=== PATIENT | male | born 1950 | race African-American/Black ===

== ENCOUNTER 2018-01-03 07:05 | Inpatient (IN) | payer OTHER ==
[~2018-01-03] VITALS: Ht 182.9 cm; Wt 103.0 kg
[~2018-01-03 07:05] MED LIST: AMLO10TA PO; BENA40TA PO; CLIN300C2 PO; COL250 PO; FLOR250 PO; FLUO-387 PO; GABA300C PO; LEVO500T6 PO; METH500T14 PO; PANT40EC PO; PRAV40TA1 PO; [UNRECOGNIZED DRUG - CODE] PO
[2018-01-03 07:15] VITALS: BP 125/101
[2018-01-03] MEDS ORDERED: NACL 0.9% 1,000 ML IV ONE (07:20)
--- NOTE | 2018-01-03 07:20 | NUR ---
PATIENT PRESENTS TO ED WITH BIB [facility] WITH C/O OD ON NORCO, GIVEN NARCAN ON THE FIELD, RESPOND APPROPRIATELY, HX; DM, HTN, STROKE, HEARING IMPAIRED RX; NORVASC, LOTENSIN -- DENIES N/V/D; SKIN IS PINK/WARM/DRY; AAOX4 WITH EVEN AND STEADY GAIT; LUNGS CLEAR BL; HR EVEN AND REGULAR; PT DENIES ANY FEVER, CP, SOB, OR COUGH AT THIS TIME; PATIENT STATES PAIN OF 0/10 AT THIS TIME; VSS; PATIENT POSITIONED FOR COMFORT; HOB ELEVATED; BEDRAILS UP X2; BED DOWN. ER MD MADE AWARE OF PT STATUS.
[2018-01-03] MEDS ORDERED: IBUPROFEN 800 MG TAB PO ONE (07:50)
[2018-01-03] MEDS ORDERED: IBUPROFEN 400 MG TAB ONE (07:51)
[2018-01-03 08:05] LABS: BASOPHILS # (AUTO) 0.1 K/uL (0.00-0.22); BASOPHILS % (AUTO) 0.8 % (0.0-2.0); EOSINOPHILS # (AUTO) 0.1 K/uL (0-0.4); EOSINOPHILS % (AUTO) 0.4 % (0.0-4.0); HEMOGLOBIN 12.3 g/dL (12.0-18.0); LYMPHOCYTES # (AUTO) 0.5 K/uL (2.0-11.5); LYMPHOCYTES % (AUTO) 3.3 % (20.5-51.1); MEAN CORPUSCULAR HEMOGLOBIN 32 pg (27-31); MEAN CORPUSCULAR HGB CONC 33 g/dL (33-37); MEAN CORPUSCULAR VOLUME 96 fL (80-94); MONOCYTES # (AUTO) 0.1 K/uL (0.8-1.0); MONOCYTES % (AUTO) 0.8 % (1.7-9.3); NEUTROPHILS # (AUTO) 15.2 K/uL (1.8-7.7); NEUTROPHILS % (AUTO) 94.7 % (42.2-75.2); PLATELET COUNT (AUTO) 164 K/uL (140-450); RED BLOOD CELL COUNT(AUTO) 3.88 MIL/uL (4.20-6.10); RED CELL DISTRIBUTION WIDTH 13.5 % (11.6-13.7)
[2018-01-03 08:13] LABS: ANION GAP 14.9 (8-16); CARBON DIOXIDE 23.9 mmol/L (21-32); CREATININE 1.3 mg/dL (0.7-1.3); POTASSIUM 3.8 mmol/L (3.5-5.1)
[2018-01-03 08:15] LABS: SALICYLATE < 2.8 mg/dL (2.8-20.0)
[2018-01-03 08:16] LABS: ACETAMINOPHEN < 0.5 ug/ml (10-30)
[2018-01-03 08:20] LABS: ALBUMIN 3.6 g/dL (3.4-5.0); TOTAL BILIRUBIN 0.7 mg/dL (0.0-1.0)
[2018-01-03 08:40] LABS: BILIRUBIN,URINE NEGATIVE (NEGATIVE); BLOOD, URINE NEGATIVE (NEGATIVE); COLOR,URINE YELLOW (YELLOW); LEUKOCYTE ESTERASE ,URINE NEGATIVE (NEGATIVE); NITRITE, URINE NEGATIVE (NEGATIVE); PH,URINE 5.5 (5.0-9.0); UGLUCOSE NEGATIVE (NEGATIVE)
[2018-01-03] MEDS ORDERED: PIPERACILLIN/TAZOBACTAM 3.375 GM in DEXTROSE 5% 50 ML IV ONE ×2 (08:40→10:00)
[2018-01-03] MEDS ORDERED: VANCOMYCIN 1,000 MG in DEXTROSE 5% 250 ML IV ONE (08:40)
[2018-01-03 08:49] LABS: BARBITURATE, URINE NEG. ng/ml (NEG <=200); BENZODIAZEPINE, URINE NEG. ng/mL (NEG <=200); CANNABINOID, URINE POS. ng/mL (NEG <=50); COCAINE, URINE NEG. ng/mL (NEG <=300); OPIATE, URINE POS. ng/mL (NEG <=2000); PHENCYCLIDINE SCREEN,URINE NEG. ng/mL (NEG <=25)
[2018-01-03 09:07] LABS: APPEARANCE,URINE SLIGHTLY HAZY (CLEAR)
[2018-01-03 09:13] LABS: RBC,URINE NONE SEEN /HPF (0-5); URINE AMORPHOUS URATE 1+ /HPF (None Seen); WBC,URINE 0-5 (RARE) /HPF (0-5)
[2018-01-03] MEDS ORDERED: PIPERACILLIN/TAZOBACTAM 3.375 GM VIAL IV ONE (09:47)
[2018-01-03] MEDS ORDERED: VANCOMYCIN 1,000 MG VIAL ONE (09:48)
--- NOTE | 2018-01-03 10:45 | NUR ---
Patient will be admitted to care of DR PATINO. Admited to TELE. Will go to room 123B. Belongings list completed. Report to GILMA RANDALL.
--- NOTE | 2018-01-03 10:45 | NUR ---
PETE HANDED OVER AND TO BE GIVEN BY GILMA RANDALL ON THE UNIT
[2018-01-03 10:46] LABS: PROTHROMBIN TIME 11.6 secs (10.8-13.4)
[2018-01-03 10:56] LABS: CHOL/HDL RATIO 3.6 (1-4.5); FREE T4 (FREE THYROXINE) 0.71 ng/dL (0.76-1.46); THYROID STIMULATING HORMONE 4.16 uIU/mL (0.34-3.74)
--- NOTE | 2018-01-03 11:00 | NUR ---
PT ADMITTED TO [facility] [[email or web address] ARRIVED TO UNIT VIA GURNEY ACCOMPANIED BY RN AND ML. BEDSIDE REPORT GIVEN BY ER NURSE. PT TRANSFERRED TO BED WITH TOTAL ASSIST. HAD INCONTINENT URINE. CHANGED LINENS AND GOWN. PT IS MUTE, NON VERBAL. AWAKE AND ORIENTED. PT ABLE TO FOLLOW COMMANDS. LUNG SOUNDS CLEAR ON AUSCULTATION. BLE EDEMA +2. SKIN WARM AND DRY. NO OPEN WOUNDS. APPLIED YELLOW GOWN, SOCKS, ID BAND AND SIGN POSTED. VS: TEMP 99.9, O2 96% ON NC 2L, HR 102, RR 14, BP 139/85. BED IN LOW POSITION, WHEELS LOCKED, CALL LIGHT WITHIN REACH. WILL CONTINUE TO MONITOR.
[2018-01-03] MEDS: NACL 0.9% 1,000 ML IV SCH ×2 (11:40→18:06)
[2018-01-03 12:00] VITALS: BP 138/78
[2018-01-03] MEDS ORDERED: DEXTROSE 50% 50 ML SYR IVP PRN (12:40)
[2018-01-03] MEDS ORDERED: INSULIN LISPRO SLIDING SCALE 100 UNITS/ML VIAL SUBQ PRN (12:40)
[2018-01-03] MEDS: GABAPENTIN 300 MG CAP PO SCH ×2 (13:40→17:07)
--- NOTE | 2018-01-03 13:50 | NUR ---
PT WITH US TECH IN ROOM. PT USED URINAL AT BEDSIDE. PT ABLE TO SPEAK AT THIS TIME. ASKED IF PT WAS DONE USING URINAL. PT STATED "YES". NO SIGNS OF DISTRESS. WILL CONTINUE TO MONITOR.
[2018-01-03 16:00] VITALS: BP 160/87
[2018-01-03] MEDS: BLOOD GLUCOSE MONITORING 1 DEV DEV FS SCH ×2 (16:30→21:45)
--- NOTE | 2018-01-03 16:30 | NUR ---
PT UP WITH PHYSICAL THERAPY. REPORTED PT GOT UP TO BATHROOM. ASSISTED PT BACK TO BED. NO SIGNS OF DISTRESS. PT ASKED TO CALL HIS . CALLED , SHE SAID SHE WILL COME AND VISIT TODAY. PT AWARE. WILL CONTINUE TO MONITOR.
--- NOTE | 2018-01-03 18:30 | NUR ---
DC IV TO RIGHT HAND 22G AND STARTED LEFT FOREARM 20G. PATENT
--- NOTE | 2018-01-03 19:20 | NUR ---
RECEIVED PATIENT LYING COMFORTABLE IN BED. CALL LIGHTS WITHIN REACH, BED ALARM ON, BED IN LOW POSITION. DISCUSSED TO PATIENT PLAN OF CARE. WILL CONTINUE TO MONITOR.
--- NOTE | 2018-01-03 19:20 | NUR ---
PT REPORT GIVEN TO NIGHTSHIFT NURSE AT BEDSIDE. NO S/S OF DISTRESS.
[2018-01-03 20:00] VITALS: BP 130/69
[2018-01-03] MEDS: SIMVASTATIN 20 MG TAB PO SCH (20:47)
[2018-01-03] MEDS: PIPER/TAZO 2.25GM/D5W PREMIX 50 ML IV SCH (20:48)
[2018-01-03] MEDS ORDERED: NON-FORMULARY ITEM (Pravastatin Sodium* (Pravachol*) 40 MG) PO SCH (21:00)
--- NOTE | 2018-01-03 21:15 | NUR ---
SEEN PATIENT LYING COMFORTABLE IN BED WATCHING TV. BED IN LOW POSITION, CALL LIGHT WITHIN REACH, BED ALARM ON. NO S/S OF DISTRESS NOTED AT THIS TIME. WILL CONTINUE TO MONITOR.
--- NOTE | 2018-01-03 23:15 | NUR ---
NIRAJ FROM RADIOLOGY CALLED THAT PATIENT REFUSE FOR CT SCAN. NOTIFIED DR. LANDRUM AND HE WILL REVIEW PATIENT CHART.
[2018-01-04] VITALS: BP 140/90
--- NOTE | 2018-01-04 00:20 | NUR ---
PATIENT SEEN LYING IN BED AWAKE WATCHING TV. CALL LIGHT WITHIN REACH, BED IN LOW POSITION. WILL CONTINUE TO MONITOR.
[2018-01-04] MEDS: NACL 0.9% 1,000 ML IV SCH ×4 (01:02→22:42)
[2018-01-04 04:00] VITALS: BP 135/75
--- NOTE | 2018-01-04 04:15 | NUR ---
PATIENT REQUESTED A CONDOM CATH. NOTIFIED DR. LANDRUM. PLACED ORDER AND CARRIED OUT.CONDOM CATH DRAINING YELLOW URINE. FALL PRECAUTION IMPLEMENTED. ALL NEEDS ATTENDED. WILL CONTINUE TO MONITOR.
[2018-01-04] MEDS: PIPER/TAZO 2.25GM/D5W PREMIX 50 ML IV SCH ×3 (04:49→20:35)
--- NOTE | 2018-01-04 05:25 | NUR ---
AM CARE DONE. LINEN CHANGE/BLANKET. PATIENT AWAKE WATCHING TV. SCD IN PLACED TO BLE. FALL PRECAUTION IMPLEMENTED. WILL CONTINUE TO MONITOR.
--- NOTE | 2018-01-04 07:15 | NUR ---
ENDORSED PATIENT TO AM SHIFT NURSE FOR CONTINUITY OF CARE. PATIENT IN STABLE CONDITION.
--- NOTE | 2018-01-04 07:16 | NUR ---
RECEIVED REPORT FROM MORPHOLOGIST NURSE BIN AT BEDSIDE FOR CONTINUITY OF CARE. PT IS AWAKE AND ORIENTED X3. INTRODUCED SELF AND UPDATED BOARD. LUNG SOUNDS CLEAR ON AUSCULTATION. ON RA. O2 SAT 98%. NO COUGH PRESENT. SKIN IS WARM AND DRY. IV TO L FA 20G INTACT. NS @140ML/HR. CONDOM CATHETER IN PLACE. STRAW COLORED URINE NOTED. PT DENIES PAIN. BED IN LOW POSITION, WHEELS LOCKED, CALL LIGHT WITHIN REACH. WILL CONTINUE TO MONITOR.
[2018-01-04 07:23] LABS: MAGNESIUM 1.9 mg/dL (1.8-2.4); PHOSPHORUS 1.8 mg/dL (2.5-4.9)
[2018-01-04 07:33] LABS: ANION GAP 11.4 (8-16); CARBON DIOXIDE 24.9 mmol/L (21-32); CREATININE 1.1 mg/dL (0.7-1.3); POTASSIUM 3.3 mmol/L (3.5-5.1)
[2018-01-04 08:00] VITALS: BP 139/68
[2018-01-04 08:01] LABS: HEMOGLOBIN 11.5 g/dL (12.0-18.0); MEAN CORPUSCULAR HEMOGLOBIN 32 pg (27-31); MEAN CORPUSCULAR HGB CONC 34 g/dL (33-37); MEAN CORPUSCULAR VOLUME 96 fL (80-94); PLATELET COUNT (AUTO) 153 K/uL (140-450); RED BLOOD CELL COUNT(AUTO) 3.54 MIL/uL (4.20-6.10); RED CELL DISTRIBUTION WIDTH 13.6 % (11.6-13.7); WHITE BLOOD COUNT (AUTO) 18.6 K/uL (4.8-10.8)
[2018-01-04] MEDS: BLOOD GLUCOSE MONITORING 1 DEV DEV FS SCH ×4 (08:13→20:38)
[2018-01-04] MEDS: amLODIPine 5 MG TAB PO SCH (08:16)
[2018-01-04] MEDS: BENAZEPRIL 20 MG TAB PO SCH (08:16)
[2018-01-04] MEDS: GABAPENTIN 300 MG CAP PO SCH ×3 (08:16→18:17)
[2018-01-04] MEDS: PANTOPRAZOLE 40 MG TABEC PO SCH (08:16)
[2018-01-04] MEDS: FLUoxetine 20 MG CAP PO SCH (08:16)
--- NOTE | 2018-01-04 08:16 | NUR ---
ADMINISTERED SCHEDULED MEDS. WROTE DOWN LIST OF MEDICATIONS FOR PT TO READ. PT VERBALIZED UNDERSTANDING AND TOLERATED MEDS WELL. ASSISTED WITH SET UP OF BREAKFAST. EATING FOOD INDEPENDENTLY. NO COMPLAINTS AT THIS TIME. BED IN LOW POSITION, BED ALARM ON, CALL LIGHT WITHIN REACH. WILL CONTINUE TO MONITOR.
[2018-01-04] MEDS: DOCUSATE 100 MG/10 ML UDC GT SCH (08:17)
[2018-01-04] MEDS: LACTOBACILLUS RHAMNOSUS GG 1 EACH CAP PO SCH (08:17)
[2018-01-04 09:26] LABS: EOSINOPHILS % (MANUAL) 1 % (0-4); LYMPHOCYTES % (MANUAL) 20 % (20-46); MONOCYTES % (MANUAL) 3 % (5-12)
--- NOTE | 2018-01-04 10:37 | NUR ---
PATIENT HAS BEEN SCREENED AND CATEGORIZED MODERATE NUTRITION RISK. PATIENT WILL BE SEEN WITHIN 3-5 DAYS OF ADMISSION. 01/05/18 - 01/07/[address]
[2018-01-04] MEDS ORDERED: POTASSIUM CHLORIDE 20% 40 MEQ/15 ML UDC PO SCH (11:50)
[2018-01-04] MEDS ORDERED: SODIUM PHOS / POTASSIUM PHOS 1 PKT PDR PO SCH (11:50)
[2018-01-04 12:00] VITALS: BP 125/77
--- NOTE | 2018-01-04 12:30 | NUR ---
FOUND PT HAD LEAKING CONDOM CATHETER. CHANGED SOILED LINENS AND GOWN. REPLACED NEW CONDOM CATHETER. PT TOLERATED WELL. RESTING IN BED NOW. NO SIGNS OF DISTRESS.
[2018-01-04] MEDS: SODIUM PHOS / POTASSIUM PHOS 1 PKT PDR PO SCH ×2 (13:38→18:17)
[2018-01-04 16:00] VITALS: BP 147/87
--- NOTE | 2018-01-04 16:30 | NUR ---
CHECKED PT'S BS 69. OFFERED ORANGE JUICE. PT TOLERATED WELL. WILL CONTINUE TO MONITOR
--- NOTE | 2018-01-04 16:50 | NUR ---
ADMINISTERED MEDS. WROTE DOWN LIST OF MEDS FOR PT TO READ. PT VERBALIZED UNDERSTANDING. TOLERATED WELL. CALL LIGHT WITHIN REACH. WILL CONTINUE TO MONITOR.
--- NOTE | 2018-01-04 18:00 | NUR ---
PT HAD LEAKED CONDOM CATH. CHANGED CONDOM CATH AND SECUREMENT. CHANGE WET LINENS AND GOWN. PT IN NO DISTRESS. WILL CONTINUE TO MONITOR.
--- NOTE | 2018-01-04 19:20 | NUR ---
ENDORSED PT TO SUPERVISOR PACKING NURSE LAURA AT BEDSIDE FOR CONTINUITY OF CARE. PT IN STABLE CONDITION.
--- NOTE | 2018-01-04 19:22 | NUR ---
RECEIVED REPORT FROM DAY RN. PT RESTING IN BED. AAOX4. NO S/S OF ACUTE DISTRESS. PT DENIES PAIN. IV SITE PATENT AND INTACT. CALL LIGHT WITHIN REACH. SAFETY MEASURES ENSURED. WILL CONTINUE TO MONITOR.
[2018-01-04] MEDS: SIMVASTATIN 20 MG TAB PO SCH (20:34)
--- NOTE | 2018-01-04 23:38 | NUR ---
PT SLEEPING IN BED. NO S/S OF ACUTE DISTRESS. WILL CONTINUE TO MONITOR.
[2018-01-05] VITALS: BP 134/77
[2018-01-05] MEDS: BLOOD GLUCOSE MONITORING 1 DEV DEV FS SCH ×4 (05:26→20:39)
[2018-01-05] MEDS: NACL 0.9% 1,000 ML IV SCH ×2 (05:30→12:24)
[2018-01-05] MEDS: PIPER/TAZO 2.25GM/D5W PREMIX 50 ML IV SCH ×3 (05:30→20:33)
--- NOTE | 2018-01-05 07:27 | NUR ---
ENDORSED PLAN OF CARE TO DAY RN. PT REMAINS STABLE.
--- NOTE | 2018-01-05 07:28 | NUR ---
RECEIVED REPORT FROM IT OPERATIONS ANALYST NURSE AT BEDSIDE FOR CONTINUITY OF CARE. PT RESTING IN BED. AAOX4. NO S/S OF ACUTE DISTRESS. PT DENIES PAIN. IV SITE PATENT AND INTACT, IVF INFUSING WELL. SAFETY PRECAUTION IN PLACE, CALL LIGHT WITHIN REACH. SAFETY PRECAUTION IN PLACE. WILL CONTINUE TO MONITOR PATIENT.
[2018-01-05 07:44] LABS: BASOPHILS # (AUTO) 0.3 K/uL (0.00-0.22); BASOPHILS % (AUTO) 1.8 % (0.0-2.0); EOSINOPHILS # (AUTO) 0.3 K/uL (0-0.4); EOSINOPHILS % (AUTO) 1.8 % (0.0-4.0); HEMATOCRIT 36.1 % (36-52); HEMOGLOBIN 12.1 g/dL (12.0-18.0); LYMPHOCYTES # (AUTO) 2.9 K/uL (2.0-11.5); MEAN CORPUSCULAR HEMOGLOBIN 32 pg (27-31); MEAN CORPUSCULAR HGB CONC 34 g/dL (33-37); MEAN CORPUSCULAR VOLUME 95 fL (80-94); MONOCYTES # (AUTO) 0.6 K/uL (0.8-1.0); MONOCYTES % (AUTO) 4.2 % (1.7-9.3); NEUTROPHILS # (AUTO) 9.9 K/uL (1.8-7.7); NEUTROPHILS % (AUTO) 71.2 % (42.2-75.2); PLATELET COUNT (AUTO) 141 K/uL (140-450); RED CELL DISTRIBUTION WIDTH 13.6 % (11.6-13.7)
[2018-01-05 08:00] VITALS: BP 147/92
[2018-01-05 08:07] LABS: ANION GAP 12.6 (8-16); CREATININE 1.1 mg/dL (0.7-1.3); POTASSIUM 3.6 mmol/L (3.5-5.1)
[2018-01-05] MEDS: LACTOBACILLUS RHAMNOSUS GG 1 EACH CAP PO SCH (09:36)
[2018-01-05] MEDS: DOCUSATE 100 MG/10 ML UDC GT SCH (09:36)
[2018-01-05] MEDS: SODIUM PHOS / POTASSIUM PHOS 1 PKT PDR PO SCH ×3 (09:36→16:35)
[2018-01-05] MEDS: FLUoxetine 20 MG CAP PO SCH (09:37)
[2018-01-05] MEDS: GABAPENTIN 300 MG CAP PO SCH ×3 (09:37→16:34)
[2018-01-05] MEDS: amLODIPine 5 MG TAB PO SCH (09:37)
[2018-01-05] MEDS: BENAZEPRIL 20 MG TAB PO SCH (09:37)
[2018-01-05] MEDS: PANTOPRAZOLE 40 MG TABEC PO SCH (09:37)
--- NOTE | 2018-01-05 09:37 | NUR ---
ADMINISTERED ORDERED MEDICATIONS. PATIENT TOLERATED THEM WELL. PATIENT DENIES PAIN. NO SIGNS OF DISTRESS OR SOB NOTED. SAFETY PRECAUTION IN PLACE, CALL LIGHT WITHIN REACH, WILL CONTINUE TO MONITOR PATIENT.
--- NOTE | 2018-01-05 12:11 | NUR ---
ADMINISTERED ORDERED MEDICATIONS. PATIENT TOLERATED IT WELL. BLOOD SUGAR 84, NO COVERAGE GIVEN. PATIENT DENIES PAIN. NO SIGNS OF DISTRESS OR SOB NOTED. SAFETY PRECAUTION IN PLACE, CALL LIGHT WITHIN REACH, WILL CONTINUE TO MONITOR PATIENT.
--- NOTE | 2018-01-05 13:00 | NUR ---
Social Workers notes: I contact Patient's Ronda Velarde at [phone], discuss and confirm Patient's information gather during screen with Patient. Per Patient has provided correct information and she added that Patient's health has declined and his needed help increased over the last couple years. Per Mrs. Velarde she monitor his medications daily and patient is in constant supervision due to his lack of impulse control she has to watch him to not have him hurt self or fall when he attempts to get up or walk by himself. Per Mrs. Velarde she recently got a safe box to lock all medications away from patient and take better safety measures since he tends to take medications due to been in constant pain. During conversation with Mrs. Velarde these service writer advisor provided her with patient's status and MD. Lynch recommendations for Home health services for Physical Therapy after he is discharge form [facility]. Mrs. Velarde agreed and inquired about getting services with [facility]. I informed Mrs. Velarde that I will let director of casework department know of her request. She agreed, thank me for my assistance and I ended the call.
--- NOTE | 2018-01-05 13:25 | NUR ---
PATIENT AMBULATED TO BATHROOM WITH ASSISTANCE. PATIENT HAD BOWEL MOVEMENT. PATIENT NOW RESTING IN BED, PATIENT DENIES PAIN. NO SIGNS OF DISTRESS OR SOB NOTED. SAFETY PRECAUTION IN PLACE, CALL LIGHT WITHIN REACH, WILL CONTINUE TO MONITOR PATIENT.
--- NOTE | 2018-01-05 13:51 | NUR ---
CM NOTE RECEIVED ORDER FOR HOME HEALTH FOR PT. PER DR. NINA, PLAN IS TO DC PATIENT WITH HOME HEALTH TOMORROW. PER DIMA REDDY, SHE SPOKE WITH PATIENT'S WHO IS AGREEABLE TO HOME HEALTH AND PREFERS [facility]. FAXED INQUIRY TO [facility] [phone]. PER DAVID Giraldo OF [facility]# [phone] THEY ARE ACCEPTING THE PATIENT, THEY HAVE A NURSE/PT TO SEE PATIENT WHEN DISCHARGED AND THEY ARE AWARE OF THE PLAN TO DISCHARGE PATIENT TOMORROW.
[2018-01-05 16:00] VITALS: BP 150/86
[2018-01-05] MEDS: ACETAMINOPHEN 325 MG TAB PO PRN ×2 (16:35→20:43)
--- NOTE | 2018-01-05 16:35 | NUR ---
ADMINISTERED ORDERED MEDICATIONS. PATIENT TOLERATED IT WELL. BLOOD SUGAR 81, NO COVERAGE GIVEN. PATIENT C/O BACK PAIN 3/10, TYLENOL PRN GIVEN. PATIENT TOLERATED IT WELL. NO SIGNS OF DISTRESS OR SOB NOTED. SAFETY PRECAUTION IN PLACE, CALL LIGHT WITHIN REACH, WILL CONTINUE TO MONITOR PATIENT.
--- NOTE | 2018-01-05 17:45 | NUR ---
L AC IV INFILTRATED. IV REMOVED, IV CATHETER INTACT. MINIMAL BLEEDING NOTED. NEW IV INSERTED IN R FA 22G, PATENT, ASYMPTOMATIC, AND INTACT. PATIENT TOLERATED PROCESS WELL. SAFETY PRECAUTION IN PLACE, BED ALARM ON, CALL LIGHT WITHIN REACH, WILL CONTINUE TO MONITOR PATIENT.
--- NOTE | 2018-01-05 19:27 | NUR ---
PATIENT REPORT GIVEN TO ENGRAVER LETTERING RN AT BEDSIDE FOR CONTINUITY OF CARE. PATIENT IN STABLE CONDITION.
--- NOTE | 2018-01-05 19:28 | NUR ---
RECEIVED PT FROM DAY SHIFT NURSE ZACKARY-RN. AOX3, HARD OF HEARING AND REQUIRES USING NOTEPAD TO COMMUNICATE, ALSO USES GLASSES. AMBULATORY WITH ASSISTANCE. ON ROOM AIR. BLE EDEMA, SCD ON. NO LONGER HAS CONDOM CATHETER. IS ABLE TO USE URINAL AT BEDSIDE. NO S/S OF RESPIRATORY DISTRESS OR DISCOMFORT NOTED AT THIS TIME. BED IN LOWEST POSITION. CALL LIGHT WITHIN REACH. WILL CONTINUE TO MONITOR.
[2018-01-05] MEDS: SIMVASTATIN 20 MG TAB PO SCH (20:33)
--- NOTE | 2018-01-05 20:35 | NUR ---
PT TOLERATED MEDICATIONS WELL. NO S/S OF RESPIRATORY DISTRESS OR DISCOMFORT NOTED AT THIS TIME. BED IN LOWEST POSITION. CALL LIGHT WITHIN REACH. WILL CONTINUE TO MONITOR.
--- NOTE | 2018-01-05 22:30 | NUR ---
NEW IV LINE INSERTED ON LEFT FOREARM BY NURSE NOLVIA. 22G, PATENT AND FLUSHING WELL. RIGHT FOREARM IV WAS REMOVED IT WAS NO LONGER FLUSHING WITH SALINE FLUSH; CATHETER WAS INTACT.
[2018-01-06] VITALS: BP 129/85
--- NOTE | 2018-01-06 00:30 | NUR ---
PT SLEEPING IN BED AT THIS TIME. NO S/S OF RESPIRATORY DISTRESS OR DISCOMFORT NOTED AT THIS TIME. BED IN LOWEST POSITION. CALL LIGHT WITHIN REACH. WILL CONTINUE TO MONITOR.
--- NOTE | 2018-01-06 02:45 | NUR ---
PT SLEEPING AT THIS TIME. NO S/S OF RESPIRATORY DISTRESS OR DISCOMFORT NOTED AT THIS TIME. BED IN LOWEST POSITION. CALL LIGHT WITHIN REACH. WILL CONTINUE TO MONITOR.
--- NOTE | 2018-01-06 04:30 | NUR ---
SATNAM HINTON ASSISTED PT TO THE BATHROOM. PT URINATED AND HAD BM. WILL CONTINUE TO MONITOR.
[2018-01-06] MEDS: PIPER/TAZO 2.25GM/D5W PREMIX 50 ML IV SCH (05:46)
--- NOTE | 2018-01-06 05:57 | NUR ---
ASSISTED PT TO CHAIR SO THAT BED LINENS COULD BE CHANGED. THEY BECAME WET WITH URINE WHILE USING THE URINAL. NO S/S OF RESPIRATORY DISTRESS OR DISCOMFORT NOTED AT THIS TIME. BED IN LOWEST POSITION. CALL LIGHT WITHIN REACH. WILL CONTINUE TO MONITOR.
--- NOTE | 2018-01-06 07:32 | NUR ---
ENDORSED PT TO DAY SHIFT NURSE KY-RN IN STABLE CONDITION FOR CONTINUITY OF CARE.
--- NOTE | 2018-01-06 07:33 | NUR ---
RECEIVED REPORT FROM WEB FEEDER NURSE AT BEDSIDE FOR CONTINUITY OF CARE. PT RESTING IN BED. AAOX4. NO S/S OF ACUTE DISTRESS. PT DENIES PAIN. IV SITE PATENT AND INTACT, SALINE LOCKED. VITAL SIGNS WNL. SAFETY PRECAUTION IN PLACE, CALL LIGHT WITHIN REACH. WILL CONTINUE TO MONITOR PATIENT.
[2018-01-06] MEDS: BLOOD GLUCOSE MONITORING 1 DEV DEV FS SCH ×2 (07:40→11:30)
[2018-01-06 07:41] LABS: BASOPHILS # (AUTO) 0.3 K/uL (0.00-0.22); BASOPHILS % (AUTO) 2.8 % (0.0-2.0); EOSINOPHILS # (AUTO) 0.3 K/uL (0-0.4); EOSINOPHILS % (AUTO) 2.6 % (0.0-4.0); HEMATOCRIT 35.3 % (36-52); HEMOGLOBIN 11.7 g/dL (12.0-18.0); LYMPHOCYTES # (AUTO) 2.9 K/uL (2.0-11.5); LYMPHOCYTES % (AUTO) 27.5 % (20.5-51.1); MEAN CORPUSCULAR HEMOGLOBIN 32 pg (27-31); MEAN CORPUSCULAR HGB CONC 33 g/dL (33-37); MEAN CORPUSCULAR VOLUME 95.8 fL (80-94); MONOCYTES # (AUTO) 0.4 K/uL (0.8-1.0); MONOCYTES % (AUTO) 4.2 % (1.7-9.3); NEUTROPHILS # (AUTO) 6.6 K/uL (1.8-7.7); NEUTROPHILS % (AUTO) 62.9 % (42.2-75.2); PLATELET COUNT (AUTO) 164 K/uL (140-450); RED BLOOD CELL COUNT(AUTO) 3.68 MIL/uL (4.20-6.10); RED CELL DISTRIBUTION WIDTH 13.4 % (11.6-13.7); WHITE BLOOD COUNT (AUTO) 10.5 K/uL (4.8-10.8)
[2018-01-06 07:50] LABS: ANION GAP 13.8 (8-16); CARBON DIOXIDE 24.6 mmol/L (21-32); CREATININE 1.2 mg/dL (0.7-1.3); POTASSIUM 3.4 mmol/L (3.5-5.1)
[2018-01-06 08:00] VITALS: BP 143/89
--- NOTE | 2018-01-06 09:05 | NUR ---
PATIENT AMBULATED TO RESTROOM WITH STANDBY ASSIST. PHYSICAL THERAPY ALSO IN TO SEE PATIENT. WILL WAIT FOR THEIR ASSESSMENT AND EVALUATION.
[2018-01-06] MEDS: LACTOBACILLUS RHAMNOSUS GG 1 EACH CAP PO SCH (09:22)
[2018-01-06] MEDS: PANTOPRAZOLE 40 MG TABEC PO SCH (09:22)
[2018-01-06] MEDS: DOCUSATE 100 MG/10 ML UDC GT SCH (09:22)
[2018-01-06] MEDS: SODIUM PHOS / POTASSIUM PHOS 1 PKT PDR PO SCH (09:22)
[2018-01-06] MEDS: FLUoxetine 20 MG CAP PO SCH (09:22)
[2018-01-06] MEDS: BENAZEPRIL 20 MG TAB PO SCH (09:23)
[2018-01-06] MEDS: GABAPENTIN 300 MG CAP PO SCH (09:23)
[2018-01-06] MEDS: amLODIPine 5 MG TAB PO SCH (09:23)
--- NOTE | 2018-01-06 09:25 | NUR ---
ADMINISTERED ORDERED MEDICATIONS. PATIENT TOLERATED THEM WELL. PATIENT DENIES PAIN. NO SIGNS OF DISTRESS OR SOB NOTED. PATIENT ASKED WHEN HE WILL BE DISCHARGED TODAY. INFORMED HIM I WILL SPEAK TO THE DOCTORS AND FORWARD HIS QUESTIONS AND GET BACK TO HIM. SAFETY PRECAUTION IN PLACE, CALL LIGHT WITHIN REACH, WILL CONTINUE TO MONITOR PATIENT.
--- NOTE | 2018-01-06 10:10 | NUR ---
CM NOTE [phone] AND DAVID Giraldo OF [facility] STATED THAT THEY ARE ABLE TO SEE PATIENT IN THE NEXT 48 HRS POST DISCHARGE. ZACKARY RN AWARE.
--- NOTE | 2018-01-06 10:30 | NUR ---
SPOKE TO DR. NINA ABOUT PATIENT'S POSSIBLE DISCHARGE. DR. NINA WORKING ON DISCHARGE ORDER, SAID PATIENT WILL BE DISCHARGED TODAY. LEVY CALLED AT [phone]. SPOKE TO PT'S TO INFORM HIM OF PATIENT'S DISCHARGE, SHE SAID TO CALL BACK WHEN THE ORDERS AND PAPERWORK ARE DONE, THEN SHE WILL COME TO PICK HIM UP. INFORMED PATIENT OF THIS NEWS. PATIENT RESTING IN BED, NO SIGNS OF DISTRESS OR SOB NOTED, SAFETY PRECAUTION IN PLACE, CALL LIGHT WITHIN REACH. WILL CONTINUE TO MONITOR PATIENT.
[2018-01-06] MEDS ORDERED: LEVO500T2 PO (11:05)
[2018-01-06] MEDS ORDERED: [UNRECOGNIZED DRUG - CODE] PO (11:05)
[2018-01-06] MEDS ORDERED: CLIN300C2 PO (11:05)
[2018-01-06] MEDS ORDERED: LACT10CA PO (11:05)
--- NOTE | 2018-01-06 12:35 | NUR ---
DISCHARGE INSTRUCTION AND EDUCATION GIVEN TO PATIENT. PATIENT VERBALIZED UNDERSTANDING. IV REMOVED, IV CATHETER INTACT, MINIMAL BLOOD NOTED. BLOOD SUGAR 70, ENCOURAGED PATIENT TO EAT HIS LUNCH WHILE WAITING FOR HIS TO ARRIVE. AFTER EATING LUNCH, PATIENT WILL GET DRESSED AND GET READY TO BE DISCHARGE OFF THE FLOOR.
--- NOTE | 2018-01-06 13:05 | NUR ---
PATIENT FINISHED LUNCH, FROM [facility] CALLED, SAYING THAT SHE COULD NOT ENTER BECAUSE SHE HAD HER 2 YEAR OLD GRANDDAUGHTER WITH HER. SHE BROUGHT THE PATIENT'S CLOTHING. CLOTHING GIVEN TO PATIENT TO CHANGE INTO. PATIENT AMBULATED TO BATHROOM WITH STANDBY ASSIST. NOW IN THE PROCESS OF CHANGING CLOTHES TO BE DISCHARGED. BLOOD SUGAR AFTER LUNCH 101, NO COVERAGE NEEDED.
--- NOTE | 2018-01-06 13:25 | NUR ---
PATIENT WHEELED OFF FLOOR ACCOMPANIED BY RN TO LOBBY WHERE HIS AND GRANDDAUGHTER WERE. PATIENT TOOK ALL HIS BELONGINGS WITH HIM. PATIENT IN STABLE CONDITION.
== END 2018-01-06 13:25 | disposition home health service (06) | DRG 871 ==
LOC: MED 07:05 → MTU 09:49
PROVIDERS: ADMIT Student in an Organized Health Care Education/Training Program; ATTEND Student in an Organized Health Care Education/Training Program
DX: A41.9 Sepsis, unspecified organism (principal); G92 Toxic encephalopathy; N17.0 Acute kidney failure with tubular necrosis; J69.0 Pneumonitis due to inhalation of food and vomit; N39.0 Urinary tract infection, site not specified; T40.2X1A Poisoning by other opioids, accidental (unintentional), initial encounter; E86.0 Dehydration; I10 Essential (primary) hypertension; F32.9 Major depressive disorder, single episode, unspecified; E11.9 Type 2 diabetes mellitus without complications; H91.90 Unspecified hearing loss, unspecified ear; G89.29 Other chronic pain; M54.9 Dorsalgia, unspecified; E03.9 Hypothyroidism, unspecified; E83.39 Other disorders of phosphorus metabolism; E87.6 Hypokalemia; F43.10 Post-traumatic stress disorder, unspecified; Z82.49 Family history of ischemic heart disease and other diseases of the circulatory system; Z86.73 Personal history of transient ischemic attack (TIA), and cerebral infarction without residual deficits; Z86.19 Personal history of other infectious and parasitic diseases; Y92.89 Other specified places as the place of occurrence of the external cause; B19.20 Unspecified viral hepatitis C without hepatic coma; F12.90 Cannabis use, unspecified, uncomplicated
CPT/HCPCS: 36415; 71045; 80048; 80053; 80305; 81001; 82150; 82948; 83036; 83605; 83690; 83735; 83880; 84100; 84439; 84443; 84479; 84484; 85025; 85610; 85730; 87040; 87081; 87086; 87804; 93005; 93970; 96365; 97110; 97116; 97140; 97530; 99285; C1758; G0480; G0482; J1815; J2543; J3370; J7030; J7060; Q0092

== ENCOUNTER 2018-02-16 18:58 | Inpatient (IN) | payer OTHER, MEDICAID ==
[~2018-02-16] VITALS: Ht 172.7 cm; Wt 99.4 kg
[~2018-02-16 18:58] MED LIST changes: +LACT10CA PO; +LEVO500T2 PO; -LEVO500T6 PO; -METH500T14 PO; +[UNRECOGNIZED DRUG - CODE] PO
--- NOTE | 2018-02-16 19:01 | NUR ---
PT TO BED 7 VIA EMS STRETCHER
--- NOTE | 2018-02-16 19:02 | NUR ---
PT BIBA BLS FOR [facility] TO BED 7
[2018-02-16 19:04] VITALS: BP 172/109
[2018-02-16] MEDS ORDERED: NACL 0.9% 2,000 ML IV ONE (19:05)
[2018-02-16] MEDS ORDERED: ACETAMINOPHEN 650 MG SUPP RC ONE (19:20)
[2018-02-16] MEDS ORDERED: fentaNYL 0.05 MG/ML VIAL IVP ONE (19:20)
[2018-02-16] MEDS ORDERED: PIPERACILLIN/TAZOBACTAM 3.375 GM in DEXTROSE 5% 50 ML IV ONE (19:25)
[2018-02-16] MEDS ORDERED: LEVOFLOXACIN 750 MG/D5W PREMIX 150 ML IV ONE (19:25)
[2018-02-16] MEDS ORDERED: PIPERACILLIN/TAZOBACTAM 3.375 GM VIAL IV ONE (19:42)
[2018-02-16 20:30] LABS: BASOPHILS % (AUTO) 0.1 % (0.0-2.0); EOSINOPHILS % (AUTO) 0.1 % (0.0-4.0); HEMATOCRIT 34.3 % (36-52); HEMOGLOBIN 11.4 g/dL (12.0-18.0); LYMPHOCYTES # (AUTO) 1.4 K/uL (2.0-11.5); LYMPHOCYTES % (AUTO) 11.5 % (20.5-51.1); MEAN CORPUSCULAR HEMOGLOBIN 31 pg (27-31); MEAN CORPUSCULAR HGB CONC 33 g/dL (33-37); MEAN CORPUSCULAR VOLUME 94.3 fL (80-94); MONOCYTES # (AUTO) 0.8 K/uL (0.8-1.0); MONOCYTES % (AUTO) 6.8 % (1.7-9.3); NEUTROPHILS # (AUTO) 9.6 K/uL (1.8-7.7); NEUTROPHILS % (AUTO) 81.5 % (42.2-75.2); PLATELET COUNT (AUTO) 129 K/uL (140-450); RED BLOOD CELL COUNT(AUTO) 3.63 MIL/uL (4.20-6.10); RED CELL DISTRIBUTION WIDTH 13.6 % (11.6-13.7); WHITE BLOOD COUNT (AUTO) 11.8 K/uL (4.8-10.8)
--- NOTE | 2018-02-16 20:44 | NUR ---
PT TAKEN FOR CT SCAN VIA [facility].
[2018-02-16 20:45] LABS: ANION GAP 13.9 (8-16); CARBON DIOXIDE 25.3 mmol/L (21-32); CREATININE 1.2 mg/dL (0.7-1.3); POTASSIUM 3.2 mmol/L (3.5-5.1); PROTHROMBIN TIME 13.7 secs (10.8-13.4)
[2018-02-16 20:51] LABS: ALBUMIN 3.3 g/dL (3.4-5.0); TOTAL BILIRUBIN 1.4 mg/dL (0.0-1.0)
[2018-02-16 20:56] LABS: APPEARANCE,URINE CLEAR (CLEAR); BILIRUBIN,URINE NEGATIVE (NEGATIVE); BLOOD, URINE NEGATIVE (NEGATIVE); COLOR,URINE YELLOW (YELLOW); LEUKOCYTE ESTERASE ,URINE NEGATIVE (NEGATIVE); NITRITE, URINE NEGATIVE (NEGATIVE); PH,URINE 8.5 (5.0-9.0); UGLUCOSE NEGATIVE (NEGATIVE)
[2018-02-16] MEDS ORDERED: LORazepam 2 MG/ML VIAL IVP ONE (21:15)
[2018-02-16] MEDS ORDERED: NACL 0.9% 1,500 ML IV ONE (21:15)
--- NOTE | 2018-02-16 21:54 | NUR ---
PT TAKEN TO REPEAT CT SCAN
[2018-02-16] MEDS ORDERED: DOCUSATE SODIUM 100 MG GELCAP PO PRN (22:00)
[2018-02-16] MEDS ORDERED: ONDANSETRON 4 MG/2 ML VIAL IM/IVP PRN (22:00)
[2018-02-16] MEDS ORDERED: HYDROcodone/APAP 7.5/325 MG 1 TAB PO PRN (22:00)
[2018-02-16] MEDS ORDERED: ACETAMINOPHEN 325 MG TAB PO PRN (22:00)
--- NOTE | 2018-02-16 22:20 | NUR ---
PT RESTING IN BED, VSS. NO S/S OF DISTRESS NOTED.
[2018-02-16 22:33] LABS: CHOL/HDL RATIO 2.3 (1-4.5); FREE T4 (FREE THYROXINE) 0.8 ng/dL (0.76-1.46); MAGNESIUM 1.5 mg/dL (1.8-2.4); PHOSPHORUS 1.4 mg/dL (2.5-4.9); THYROID STIMULATING HORMONE 1.7 uIU/mL (0.34-3.74)
--- NOTE | 2018-02-16 22:58 | NUR ---
Patient will be admitted to care of DR JONES. Admited to TELEMETRY 124A. Belongings list completed. Report to GILMA GARG.
[2018-02-16 23:00] VITALS: BP 154/91
[2018-02-16] MEDS: NACL 0.9% 1,000 ML IV SCH (23:00)
--- NOTE | 2018-02-16 23:00 | NUR ---
ADMITTED A 67M FROM ER. CAME BY SUSAN . BEDSIDE REPORT TAKEN FROM ER NURSE. ON O2 BY MASK , O2 SAT 98-100% . NO SOB NOTED. WITH OCCASIONAL NON PRODUCTIVE COUGH. PT IS AWAKE ,BUT DEAF. PROVIDED PAPER AND PENCIL AT BEDSIDE TO ASSIST IN COMMUNICATION WITH PT. POSITIONED FOR COMFORT. PT DIAPER FROM ER, ALL SOAKED WITH URINE. CLEANED AND KEPT DRY. SKIN ASSESSED. WITH BRUISED ON THE LT SIDE OF UPPER THIGH . ABRASIONS ON LT SIDE OF THE EYE, LT UPPER SIDE OF EYEBROW. BENJAMIN FEET SKIN DRY. HAS IVF INFUSING WELL ON THE LT AC #20. CLEAR AND PATENT. BED IN LOWEST POSITION, SIDE RAILS UP X2. CALL LIGHT PLACED WITHIN EASY REACH. WILL FOLLOW UP ADMIT ORDERS. WILL CONTINUE TO MONITOR.
[2018-02-16] MEDS ORDERED: ALBUTEROL SULFATE/IPRATROPIU 3 ML SOL IH PRN (23:05)
--- NOTE | 2018-02-16 23:58 | NUR ---
RT CAME . ASSESSED PT. O2 MASK CHANGED TO O23L/NC, SAT 98%. NO SOB NOTED.
--- NOTE | 2018-02-17 | NUR ---
UNABLE TO OBTAIN SPUTUM AT THIS TIME, PT ATTEMPTED BUT IS NON PRODUCTIVE AT THIS TIME, PT WAS INSTRUCTED, ENCOURAGED, AND WILL TRY AGAIN LATER, GEORGETTE DILLARD NOTIFIED.
--- NOTE | 2018-02-17 00:59 | NUR ---
K LEVEL 3.2 K DUR 40 MEQ PO GIVEN ORDERED. TOLERATED WELL WITH APPLE SAUCE.
[2018-02-17] MEDS ORDERED: POTASSIUM CHLORIDE 10 MEQ TABER PO SCH (01:00)
--- NOTE | 2018-02-17 02:00 | NUR ---
SLEEPING AT THIS TIME. HOB ELEVATED WITH O23L/NC . O2 SAT 99%. NO DISTRESS NOTED.
[2018-02-17] MEDS ORDERED: MAGNESIUM OXIDE 400 MG TAB PO ONE (02:10)
[2018-02-17] MEDS ORDERED: FERRIC GLUCONATE 125 MG in NACL 0.9% 100 ML IV SCH ×2 (02:10→09:00)
[2018-02-17 04:15] VITALS: BP 158/83
--- NOTE | 2018-02-17 04:15 | NUR ---
PT AWAKE. ABLE TO TAKE MAG OXIDE PO ORDERED. TOLERATED WELL WITH APPLE SAUCE.
[2018-02-17] MEDS ORDERED: PIPERACILLIN/TAZOBACTAM 4.5 GM VIAL IV ONE (04:16)
[2018-02-17] MEDS: PIPERACILLIN/TAZOBACTAM 4.5 GM in DEXTROSE 5% 100 ML IV SCH ×3 (04:16→20:43)
--- NOTE | 2018-02-17 04:30 | NUR ---
SCD MACHINE APPLIED TO BILATERAL LOWER EXTREMITIES.
[2018-02-17 06:05] LABS: BASOPHILS # (AUTO) 0.2 K/uL (0.00-0.22); BASOPHILS % (AUTO) 1.4 % (0.0-2.0); EOSINOPHILS % (AUTO) 0.2 % (0.0-4.0); HEMATOCRIT 35.7 % (36-52); HEMOGLOBIN 12.1 g/dL (12.0-18.0); LYMPHOCYTES # (AUTO) 2.8 K/uL (2.0-11.5); LYMPHOCYTES % (AUTO) 19.4 % (20.5-51.1); MEAN CORPUSCULAR HEMOGLOBIN 32 pg (27-31); MEAN CORPUSCULAR HGB CONC 34 g/dL (33-37); MEAN CORPUSCULAR VOLUME 95.5 fL (80-94); MONOCYTES # (AUTO) 0.9 K/uL (0.8-1.0); MONOCYTES % (AUTO) 6.1 % (1.7-9.3); NEUTROPHILS # (AUTO) 10.4 K/uL (1.8-7.7); NEUTROPHILS % (AUTO) 72.9 % (42.2-75.2); PLATELET COUNT (AUTO) 125 K/uL (140-450); RED BLOOD CELL COUNT(AUTO) 3.74 MIL/uL (4.20-6.10); RED CELL DISTRIBUTION WIDTH 12.9 % (11.6-13.7); WHITE BLOOD COUNT (AUTO) 14.3 K/uL (4.8-10.8)
[2018-02-17] MEDS: PANTOPRAZOLE 40 MG TABEC PO SCH (06:15)
--- NOTE | 2018-02-17 06:18 | NUR ---
PT TOLERATED PO MEDS GIVEN THIS AM . NO PROBLEM NOTED. NO DISTRESS DURING THE NIGHT. O2 SAT 90% ON O23L/NC.
[2018-02-17 06:23] LABS: CARBON DIOXIDE 25.6 mmol/L (21-32); CREATININE 1.2 mg/dL (0.7-1.3); POTASSIUM 3.6 mmol/L (3.5-5.1)
[2018-02-17] MEDS: BUDESONIDE 0.25 MG/2 ML NEBU INH SCH ×2 (07:05→20:00)
--- NOTE | 2018-02-17 07:14 | NUR ---
ENDORSED PT IN STABLE CONDITION TO AM NURSE.
--- NOTE | 2018-02-17 07:15 | NUR ---
RECIVED PT FROM SOIL CHECKER NURSE GEORGETTE, PT IS ASLEEP ON THE BED WITH A LEFT AC AND FLUID OF NS RUNNING AT 150ML.HR. RT IS ON THE BEDSIDE TO DO A BREATHING TREATMENT. O2 SAT IS AT 98. SIDE RAILS UP AND CALL LIGHT WITHIN REACH. NO SIGN OF DISTRESS NOTED. WILL MONITOR.
[2018-02-17 08:00] VITALS: BP 158/81
--- NOTE | 2018-02-17 08:10 | NUR ---
PT IS AWAKE AND VITAL SIGNS TAKEN, NO SIGN OF DISTRESS NOTED. CALL LIGHT WITHIN REACH, WILL MONITOR.
[2018-02-17] MEDS: NACL 0.9% 1,000 ML IV SCH ×2 (08:37→17:07)
--- NOTE | 2018-02-17 08:50 | NUR ---
PATIENT HAS BEEN SCREENED AND CATEGORIZED MODERATE NUTRITION RISK. PATIENT WILL BE SEEN WITHIN 3-5 DAYS OF ADMISSION. 02/19/18 02/21/[address]
[2018-02-17] MEDS ORDERED: CLINICAL MONITORING MC SCH (09:00)
--- NOTE | 2018-02-17 09:20 | NUR ---
PT IS BEING CLEANED BY FEROZ HAY. PT PEOPLE, TYRELL AND ILSA ON BEDSIDE AND ABOUT TO START WITH THE EXERCISE WITH THE PT. NO SIGN OF DISTRESS NOTED.
--- NOTE | 2018-02-17 09:25 | NUR ---
PT IS WALKING WITH THE ASSISTANCE OF THE PT PERSONS, TYRELL AND ILSA. NO SOB AND DISTRESS NOTED.
[2018-02-17] MEDS: LACTOBACILLUS RHAMNOSUS GG 1 EACH CAP PO SCH (09:28)
[2018-02-17] MEDS: FLUoxetine 20 MG CAP PO SCH (09:28)
[2018-02-17] MEDS: amLODIPine 5 MG TAB PO SCH (09:28)
[2018-02-17] MEDS: GABAPENTIN 300 MG CAP PO SCH ×3 (09:28→17:00)
[2018-02-17] MEDS: DOCUSATE SODIUM 250 MG GELCAP PO SCH (09:29)
[2018-02-17] MEDS: BENAZEPRIL 20 MG TAB PO SCH ×2 (09:29→20:42)
[2018-02-17 12:00] VITALS: BP 145/95
[2018-02-17 14:42] LABS: MAGNESIUM 1.7 mg/dL (1.8-2.4); PHOSPHORUS 1.7 mg/dL (2.5-4.9)
--- NOTE | 2018-02-17 14:42 | NUR ---
RECEIVED CALL FROM MORE AT [facility] [phone] PT IS CURRENTLY ON THEIR SERVICE.
[2018-02-17 16:00] VITALS: BP 138/81
--- NOTE | 2018-02-17 18:15 | NUR ---
PT IS AWAKE AND SEATED ON THE BED, SON ON THE BEDSIDE, NO SIGN OF DISTRESS NOTED. WILL MONITOR.
--- NOTE | 2018-02-17 19:15 | NUR ---
ENDORSED PT TO MARKING ROOM SUPERVISOR NURSE FOR CONTINUITY OF CARE. PT IS STABLE WITH SON ON BEDSIDE.
--- NOTE | 2018-02-17 19:16 | NUR ---
RECEIVED REPORT FROM DAYSHIFT NURSE AT BEDSIDE FOR CONTINUITY OF CARE. PT IS AAOX4. NO SOB. NO S/S OF DISTRESS. PT IS ON O2 NC 3L. IV NOTED LAC 20G NS 150ML/HR. NO PAIN AT THIS TIME. BED LOWERED CALL LIGHT WITHIN REACH WILL CONTINUE TO MONITOR.
[2018-02-17 20:00] VITALS: BP 123/85
[2018-02-17] MEDS ORDERED: LEVOFLOXACIN 750 MG/D5W PREMIX 150 ML IV SCH (20:00)
[2018-02-17] MEDS: SIMVASTATIN 20 MG TAB PO SCH (20:43)
[2018-02-17] MEDS: MORPHINE SULFATE 4 MG/ML SYR IVP PRN (20:43)
[2018-02-17] MEDS ORDERED: NON-FORMULARY ITEM (Pravastatin Sodium* (Pravachol*) 40 MG) PO SCH (21:00)
[2018-02-17] MEDS ORDERED: RENAL DOSING PER PHARMACY MC PRN (22:05)
--- NOTE | 2018-02-17 23:00 | NUR ---
PT HAS FEVER MEDICATED AND PUT A COLD WET TOWEL ON FOREHEAD. WILL CONTINUE TO MONITOR.
[2018-02-17 23:42] VITALS: BP 125/77
[2018-02-18] MEDS ORDERED: SODIUM PHOS / POTASSIUM PHOS 1 PKT PDR PO SCH (01:15)
[2018-02-18] MEDS ORDERED: MAGNESIUM OXIDE 400 MG TAB PO ONE (01:15)
[2018-02-18] MEDS ORDERED: MAGNESIUM OXIDE 400 MG TAB ONE (01:49)
--- NOTE | 2018-02-18 02:07 | NUR ---
PT IS WATCHING TV, RESTING. NO SOB. NO S/S OF DISTRESS. WILL CONTINUE TO MONITOR. ON 3L NC O2.
[2018-02-18] MEDS: NACL 0.9% 1,000 ML IV SCH ×3 (04:49→23:57)
[2018-02-18] MEDS: PIPERACILLIN/TAZOBACTAM 4.5 GM in DEXTROSE 5% 100 ML IV SCH ×3 (04:50→20:14)
[2018-02-18 05:19] VITALS: BP 144/85
[2018-02-18] MEDS: PANTOPRAZOLE 40 MG TABEC PO SCH (06:01)
[2018-02-18 06:28] LABS: BASOPHILS % (AUTO) 0.2 % (0.0-2.0); EOSINOPHILS # (AUTO) 0.2 K/uL (0-0.4); EOSINOPHILS % (AUTO) 1.5 % (0.0-4.0); HEMOGLOBIN 11.5 g/dL (12.0-18.0); LYMPHOCYTES # (AUTO) 3.4 K/uL (2.0-11.5); LYMPHOCYTES % (AUTO) 28.7 % (20.5-51.1); MEAN CORPUSCULAR HEMOGLOBIN 32 pg (27-31); MEAN CORPUSCULAR HGB CONC 34 g/dL (33-37); MEAN CORPUSCULAR VOLUME 95.2 fL (80-94); MONOCYTES # (AUTO) 0.9 K/uL (0.8-1.0); NEUTROPHILS # (AUTO) 7.2 K/uL (1.8-7.7); NEUTROPHILS % (AUTO) 61.6 % (42.2-75.2); PLATELET COUNT (AUTO) 140 K/uL (140-450); RED BLOOD CELL COUNT(AUTO) 3.57 MIL/uL (4.20-6.10); RED CELL DISTRIBUTION WIDTH 13.6 % (11.6-13.7); WHITE BLOOD COUNT (AUTO) 11.7 K/uL (4.8-10.8)
[2018-02-18 06:53] LABS: ANION GAP 11.5 (8-16); CARBON DIOXIDE 25.9 mmol/L (21-32); CREATININE 1.2 mg/dL (0.7-1.3); POTASSIUM 3.4 mmol/L (3.5-5.1)
[2018-02-18 06:59] LABS: MAGNESIUM 1.9 mg/dL (1.8-2.4); PHOSPHORUS 2.4 mg/dL (2.5-4.9)
--- NOTE | 2018-02-18 07:25 | NUR ---
GAVE REPORT TO DAY SHIFT NURSE AT BEDSIDE FOR CONTINUITY OF CARE.
[2018-02-18] MEDS: BUDESONIDE 0.25 MG/2 ML NEBU INH SCH ×2 (07:30→19:32)
--- NOTE | 2018-02-18 07:30 | NUR ---
RECEIVED PT ON BED AAOX3. NO SOB NOTED. NO C/O PAIN AT THIS TIME. IV TO LT AC PATENT AND INTACT. CHEST, DIMINISHED AIR ENTRY TO THE BASES. ABDOMEN SOFT, BOWEL SOUNDS PRESENT. NO EDEMA NOTED. INSTRUCTED PT TO CALL FOR ASSISTANCE, CALL LIGHT WITHIN REACH, PT VERBALIZED UNDERSTANDING.
[2018-02-18 08:00] VITALS: BP 131/88
--- NOTE | 2018-02-18 08:06 | NUR ---
PT IS AWAKE AND ALERT. EATING WITH ACID CUTTER. DOES NOT WANT TO TAKE HHN TX. PT IS ON ROOM AIR WITH SPO2 OF 92% NO SOB OR DISTRESS NOTED. WILL CONTINUE TO MONITOR.
--- NOTE | 2018-02-18 09:30 | NUR ---
PHYSICAL THERAPY ON GOING AT THE BEDSIDE.
[2018-02-18] MEDS: GABAPENTIN 300 MG CAP PO SCH ×3 (09:52→17:25)
[2018-02-18] MEDS: DOCUSATE SODIUM 250 MG GELCAP PO SCH (09:52)
[2018-02-18] MEDS: FLUoxetine 20 MG CAP PO SCH (09:52)
[2018-02-18] MEDS: BENAZEPRIL 20 MG TAB PO SCH ×2 (09:54→20:13)
[2018-02-18] MEDS: amLODIPine 5 MG TAB PO SCH (09:54)
[2018-02-18] MEDS: LACTOBACILLUS RHAMNOSUS GG 1 EACH CAP PO SCH (11:59)
[2018-02-18 12:00] VITALS: BP 143/89
--- NOTE | 2018-02-18 13:01 | NUR ---
PHYSICAL THERAPY CO-SIGN The Physical Therapy Progress Notes documented by Cat Skinner have been reviewed. Reviewed/Co-Signed by: Cassi Maher PT Documentation Done by:ANDRA SALEEM UNIVERSITY CONTROLLER 02/17/18 XR L SHOULDER:(-)FX Pt EDUC ON FALL PREVENTION, REINFORCE USE OF CALL LT FOR NURSE ASST, NEEDS REINFORCEMENT POC REVIEWED W/ UNIVERSITY CONTROLLER; PROGRESSING W/ GAIT ENDURANCE; WILL BENEFIT W/ P.T. AFTER ACUTE STAY. Addendum: 02/18/18 at 1302 by Cassi Maher PT Amended: Links added.
[2018-02-18] MEDS: MORPHINE SULFATE 4 MG/ML SYR IVP PRN (14:23)
--- NOTE | 2018-02-18 15:05 | NUR ---
PT AWAKE, NO COMPLAINTS MADE. FAMILY AT THE BEDSIDE VISITING.
[2018-02-18 16:00] VITALS: BP 126/72
--- NOTE | 2018-02-18 17:40 | NUR ---
SPOKE WITH DR. CHERRY REGARDING PT'S DESIRE TO HAVE HIS DIET ADVANCED TO SOFT. PT ABLE TO SWALLOW ALL HIS PILLS A WHOLE. NO DIFFICULTY OF SWALLOWING NOTED. NEW ORDER GIVEN, PT'S DIET ADVANCED TO MECHANICAL SOFT.
--- NOTE | 2018-02-18 19:00 | NUR ---
PT AWAKE. NO SOB NOTED. NO COMPLAINTS OF PAIN AT THIS TIME. ENDORSED TO NEXT SHIFT NURSE FOR CONTINUITY OF CARE.
--- NOTE | 2018-02-18 19:30 | NUR ---
RECEIVED PT AWAKE WATCHING TV, PT DEAF BUT ABLE TO READ LIPS AND WRITE ON A NOTEPAD, VITAL SIGNS STABLE, 96% ON ROOM AIR, NO SIGNS OF SOB NOTED, IVF INFUSING WELL, SAFETY MEASURES IN PLACE, SIDE RAILS UP AND BED ALARM ON, CALL LIGHT WITHIN REACH.
[2018-02-18 20:00] VITALS: BP 133/81
[2018-02-18] MEDS: SIMVASTATIN 20 MG TAB PO SCH (20:13)
--- NOTE | 2018-02-18 21:30 | NUR ---
TELE DISCONTINUED ORDERED, PT WITH EPISODE OF INCONTINENCE, PERINEAL CARE DONE, REPOSITION Q2H AND OFFLOAD PRESSURES AREAS, ALL NEEDS ATTENDED.
--- NOTE | 2018-02-18 23:30 | NUR ---
PT AWAKE WATCHING TV, VITAL SIGNS STABLE, DENIES PAIN, NO SOB NOTED, IVF INFUSING WELL, CONTINUE TO MONITOR CLOSELY.
[2018-02-19] VITALS: BP 135/73
[2018-02-19] MEDS ORDERED: ZOLPIDEM 10 MG TAB PO SCH (01:43)
--- NOTE | 2018-02-19 01:46 | NUR ---
PT AWAKE REQUESTING FOR SLEEPING PILL, DR PENG WITH NEW ORDER, MEDICATED WITH AMBIEN, MONITORED CLOSELY, SIDE RAILS UP AND BED ALARM ON.
--- NOTE | 2018-02-19 03:40 | NUR ---
PT DISORIENTED, REORIENTED TO PLACE AND TIME, INCONTINENT CARE DONE, REPOSITIONED AND OFFLOAD PRESSURE AREAS, MONITORED CLOSELY.
[2018-02-19] MEDS: PIPERACILLIN/TAZOBACTAM 4.5 GM in DEXTROSE 5% 100 ML IV SCH ×2 (04:29→12:25)
[2018-02-19] MEDS: PANTOPRAZOLE 40 MG TABEC PO SCH (06:09)
[2018-02-19] MEDS: NACL 0.9% 1,000 ML IV SCH ×2 (06:10→08:59)
--- NOTE | 2018-02-19 06:10 | NUR ---
PT EASILY AROUSABLE, NO DISTRESS NOTED, DUE PO MEDICATION TAKEN, IV ANTIBIOTIC INFUSING WELL, SIDE RAILS UP AND BED ALARM ON, MONITORED CLOSELY.
--- NOTE | 2018-02-19 07:27 | NUR ---
PT SLEEPING, NO SIGNS OF DISTRESS, REPORT GIVEN TO GILMA CHAIREZ FOR CONTINUITY OF CARE.
--- NOTE | 2018-02-19 07:28 | NUR ---
RECEIVED REPORT FROM PM NURSE AT BEDSIDE FOR CONTINUITY OF CARE. PT SLEEPING AT THIS TIME. UPDATED THE PT BOARD. WILL CONTINUE TO MONITOR PT.
[2018-02-19 08:00] VITALS: BP 169/99
[2018-02-19 08:05] LABS: ANION GAP 13.1 (8-16); CREATININE 1.2 mg/dL (0.7-1.3); POTASSIUM 3.1 mmol/L (3.5-5.1)
[2018-02-19] MEDS: BUDESONIDE 0.25 MG/2 ML NEBU INH SCH (08:06)
[2018-02-19 08:07] LABS: BASOPHILS % (AUTO) 0.3 % (0.0-2.0); EOSINOPHILS # (AUTO) 0.5 K/uL (0-0.4); EOSINOPHILS % (AUTO) 4.6 % (0.0-4.0); HEMATOCRIT 33.2 % (36-52); HEMOGLOBIN 11.1 g/dL (12.0-18.0); LYMPHOCYTES % (AUTO) 29.8 % (20.5-51.1); MEAN CORPUSCULAR HEMOGLOBIN 32 pg (27-31); MEAN CORPUSCULAR HGB CONC 33 g/dL (33-37); MEAN CORPUSCULAR VOLUME 95.1 fL (80-94); MONOCYTES # (AUTO) 0.8 K/uL (0.8-1.0); MONOCYTES % (AUTO) 7.6 % (1.7-9.3); NEUTROPHILS # (AUTO) 5.8 K/uL (1.8-7.7); NEUTROPHILS % (AUTO) 57.7 % (42.2-75.2); PLATELET COUNT (AUTO) 153 K/uL (140-450); RED BLOOD CELL COUNT(AUTO) 3.49 MIL/uL (4.20-6.10); RED CELL DISTRIBUTION WIDTH 13.5 % (11.6-13.7)
[2018-02-19] MEDS: GABAPENTIN 300 MG CAP PO SCH ×3 (08:57→16:10)
[2018-02-19] MEDS: BENAZEPRIL 20 MG TAB PO SCH (08:58)
[2018-02-19] MEDS: FLUoxetine 20 MG CAP PO SCH (08:58)
[2018-02-19] MEDS: LACTOBACILLUS RHAMNOSUS GG 1 EACH CAP PO SCH (08:58)
[2018-02-19] MEDS: amLODIPine 5 MG TAB PO SCH (08:59)
[2018-02-19] MEDS: DOCUSATE SODIUM 250 MG GELCAP PO SCH (08:59)
[2018-02-19] MEDS ORDERED: POTASSIUM PHOSPHATE 15 MM in NACL 0.9% 250 ML IV SCH (10:00)
[2018-02-19] MEDS ORDERED: LACT10CA PO (10:53)
[2018-02-19] MEDS ORDERED: CLIN300C2 PO (10:53)
--- NOTE | 2018-02-19 12:34 | NUR ---
ADMINISTERED GABAPENTIN AND ZOSYN TO PT. P[T TOLERATED WELL. NO SIGN OF DISTRESS. PT RESTING COMFORTABLY.PER CVT TECH, PT REFUSED LUNCH. PT JUST WANT TO SLEEP. ALL SAFETY MEASURES IN PLACE. WILL CONTINUE TO MONITOR PT.
--- NOTE | 2018-02-19 15:00 | NUR ---
PT SLEEPING SOUNDLY. NO SIGNS OF DISTRESS. WILL CONTINUE TO MONITOR PT.
[2018-02-19 16:00] VITALS: BP 153/78
--- NOTE | 2018-02-19 17:30 | NUR ---
GAVE PT AND D/C INSTRUCTIONS. VERBALIZED UNDERSTANDING. REMOVED PT'S IV. CANNULA INTACT. NO BLEEDING NOTED. FORGOT CLOTHES. REQUESTED CLOTHES FROM SECURITY. REMOVED ALL ARM BANDS. ASSISTED WITH DIAPER AND CLOTHES. ONCE HE IS READY TO GO, THEY WILL LET US KNOW. WILL GET WHEELCHAIR READY.
--- NOTE | 2018-02-19 17:50 | NUR ---
PT WHEEL CHAIRED OUT TO THE LOBBY TO THE CAR. PERSONAL BELONGINGS WITH PT. ACCOMPANIED BY . PT IN STABLE CONDITION.
--- NOTE | 2018-02-21 10:56 | NUR ---
Social Service Note: I faxed H&P, list of medication, labs, and face sheet to [facility], phone number , fax .
== END 2018-02-19 17:50 | disposition home or self-care (01) | DRG 871 ==
LOC: MED 18:58 → MTU 21:57
PROVIDERS: ADMIT Family Medicine Sports Medicine; ATTEND Family Medicine Sports Medicine
DX: A41.9 Sepsis, unspecified organism (principal); J69.0 Pneumonitis due to inhalation of food and vomit; J96.01 Acute respiratory failure with hypoxia; E44.0 Moderate protein-calorie malnutrition; E66.01 Morbid (severe) obesity due to excess calories; D69.6 Thrombocytopenia, unspecified; E83.42 Hypomagnesemia; W19.XXXA Unspecified fall, initial encounter; S09.90XA Unspecified injury of head, initial encounter; E11.9 Type 2 diabetes mellitus without complications; D63.8 Anemia in other chronic diseases classified elsewhere; I10 Essential (primary) hypertension; E87.6 Hypokalemia; H91.93 Unspecified hearing loss, bilateral; F41.9 Anxiety disorder, unspecified; F12.90 Cannabis use, unspecified, uncomplicated; F32.9 Major depressive disorder, single episode, unspecified; B19.20 Unspecified viral hepatitis C without hepatic coma; K74.60 Unspecified cirrhosis of liver; Z80.42 Family history of malignant neoplasm of prostate; Z82.49 Family history of ischemic heart disease and other diseases of the circulatory system; Z68.38 Body mass index [BMI] 38.0-38.9, adult; Z79.899 Other long term (current) drug therapy; Z86.73 Personal history of transient ischemic attack (TIA), and cerebral infarction without residual deficits; Y93.89 Activity, other specified; Y92.89 Other specified places as the place of occurrence of the external cause; Y99.8 Other external cause status
CPT/HCPCS: 36415; 36600; 70450; 71045; 72125; 73020; 80048; 80053; 81003; 82150; 82803; 83036; 83540; 83605; 83690; 83735; 83880; 84100; 84436; 84439; 84443; 84479; 84484; 85025; 85610; 86886; 86900; 86901; 87040; 87081; 87086; 93005; 94640; 96365; 96367; 96368; 96375; 97110; 97116; 97140; 97530; 99291; C1758; J1956; J2060; J2270; J2543; J2916; J3010; J7030; J7060; J7620; J7626; Q0092